=== PATIENT | female | born 1995 | race Caucasian/White ===

== ENCOUNTER 2017-02-15 18:33 | Emergency (ER) | payer SELFPAY ==
[~2017-02-15] VITALS: Ht 152.4 cm; Wt 44.1 kg
[~2017-02-15 18:33] MED LIST: NO HOME MEDICATIONS
[2017-02-15 18:42] VITALS: BP 133/81; TEMP 98.2
[2017-02-15 20:02] VITALS: PULSE 92
== END 2017-02-15 20:02 | disposition home or self-care (01) ==
LOC: COL.ER 18:33
DX: S20.211A Contusion of right front wall of thorax, initial encounter (principal); W22.8XXA Striking against or struck by other objects, initial encounter
CPT/HCPCS: A9284

== ENCOUNTER → 2017-05-14 | Outpatient (CLI) | payer SELFPAY | LOC: COL.RAD 16:33 | DX: M25.562 Pain in left knee (principal) ==

== ENCOUNTER 2018-02-25 18:03 | Emergency (ER) | payer SELFPAY ==
[~2018-02-25] VITALS: Ht 152.4 cm; Wt 44.1 kg
[2018-02-25 18:17] VITALS: TEMP 98.4
[2018-02-25 19:04] LABS: COLLECTION METHOD CLEAN CATCH
[2018-02-25 19:11] LABS: BASO # 0.1 (0.0-0.2); BASO % 0.6 % (0.0-2.0); EOS # 1.2 (0.0-0.7); EOS % 6.4 % (0-4.0); GRAN # 13.3 (1.4-6.5); HEMOGLOBIN 13.1 g/dl (12.5-16.0); LYMPH # 2.7 (1.2-3.4); LYMPH % 13.9 % (20.0-51.0); MEAN CELL VOLUME 88 fl (80.0-100.0); MEAN CORPUSCULAR HEMOGLOBIN 29 pg (27.0-31.0); MEAN CORPUSCULAR HGB CONC 34 g/dl (33.0-37.0); MEAN PLATELET VOLUME 10.5 fl (7.4-10.4); MONO # 1.6 (0.1-0.6); MONO % 8.6 % (1.7-9.3); PLATELET COUNT 272 K/mm3 (130-400); RED BLOOD COUNT 4.45 M/mm3 (4.10-5.30); REDCELL DISTRIBUTION WIDTH-CV 11.2 % (11.5-14.5)
[2018-02-25 19:21] LABS: ALANINE AMINOTRANSFERASE 37 U/L (9-52); ALBUMIN 4.3 gm/dL (3.5-5.0); ALKALINE PHOSPHATASE 39 U/L (50-136); ANION GAP 8 mmol/L (7-16); AST,SGOT 44 U/L (15-37); BILIRUBIN,TOTAL 0.5 mg/dL (0.0-1.0); BLOOD UREA NITROGEN 14 mg/dL (7-17); CALCIUM 9.1 mg/dL (8.4-10.2); CARBON DIOXIDE 27 mmol/L (22-30); CHLORIDE 100 mmol/L (98-107); CREATININE, serum 0.68 mg/dL (0.52-1.25); GLUCOSE 91 mg/dL (74-106); POTASSIUM 3.4 mmol/L (3.4-5.0); SODIUM 135 mmol/L (137-145); TOTAL PROTEIN 7.8 gm/dL (6.4-8.2)
[2018-02-25 19:22] LABS: PH 7 (5-8); SQUAMOUS EPITHELIAL 0-2 /hpf; URINE APPEARANCE Clear; URINE BACTERIA Occasional /hpf; URINE BILIRUBIN Negative (NEGATIVE); URINE BLOOD 2+ (NEGATIVE); URINE COLOR Straw; URINE GLUCOSE Negative (NEGATIVE); URINE KETONE Negative (NEGATIVE); URINE LEUKOCYTE ESTERASE Negative (NEGATIVE); URINE NITRATE Negative (NEGATIVE); URINE PROTEIN(semi-quant) Negative (NEGATIVE); URINE RBC 0-2 /hpf; URINE UROBILINOGEN Negative (NEGATIVE)
[2018-02-25 19:32] LABS: TROPONIN-I < 0.012 ng/mL (0.000-0.034)
[2018-02-25] MEDS ORDERED: ZOFRAN ODT4 MG PO (21:40)
[2018-02-25 21:50] VITALS: BP 130/91; PULSE 96
== END 2018-02-25 21:55 | disposition home or self-care (01) ==
LOC: COL.ER 18:03
PROVIDERS: Physician Assistant
DX: R05 Cough (principal); R11.2 Nausea with vomiting, unspecified; R10.84 Generalized abdominal pain; Z90.49 Acquired absence of other specified parts of digestive tract
CPT/HCPCS: Q9967

== ENCOUNTER → 2018-05-04 | Outpatient (CLI) | payer SELFPAY ==
[~2018-05-04] MED LIST changes: +ZOFRAN ODT4 MG PO
== END ==
LOC: COL.RAD 13:32
DX: N92.6 Irregular menstruation, unspecified (principal); L70.8 Other acne; E34.9 Endocrine disorder, unspecified; Z84.2 Family history of other diseases of the genitourinary system

== ENCOUNTER 2018-09-23 13:28 | Day surgery (SDC) | payer BC ==
[~2018-09-23] VITALS: Ht 152.4 cm; Wt 43.6 kg
[2018-09-23] VITALS (9 sets, daily range): BP systolic 104–118; BP diastolic 54–73; PULSE 16–95; TEMP 97.3–98.8
[~2018-09-23 13:28] MED LIST changes: +DEPO-PROVE150 MG/1 M IM
--- NOTE | 2018-09-23 16:45 | NUR ---
Patient up to room by streacher. Drowsy and oriented x 3. Post OP VSS. Post op fluids infusing via gravity. Denies pain at this time, Denies further needs at this time.
--- NOTE | 2018-09-23 18:03 | NUR ---
Patient in bed resting, grandmother at bedside. Tolerating clear liquids. Denies pain or further needs at this time. Will report off to director instrumentation.
--- NOTE | 2018-09-23 20:14 | NUR ---
Resting in bed. Assessment complete. Lungs clear. Heart sounds normal. Bowels active x4. Pulses strong throughout. Denies pain. No edema noted. Denies needs at this time. Toleration PO well. Planning to discharge after 2029. Will monitor.
--- NOTE | 2018-09-23 20:56 | NUR ---
Patient signed discharge paperwork. All questions answered. Removed INT. Denies other needs at this time.
== END 2018-09-23 21:00 | disposition home or self-care (01) ==
LOC: SDCO 13:28 → SURG 16:46 → SDCO 21:00
DX: K85.90 Acute pancreatitis without necrosis or infection, unspecified (principal); F41.9 Anxiety disorder, unspecified; R53.82 Chronic fatigue, unspecified; F32.9 Major depressive disorder, single episode, unspecified; Z90.49 Acquired absence of other specified parts of digestive tract
CPT/HCPCS: OP; C1769; J2250; J2704; J3010; J7030

== ENCOUNTER → 2019-03-24 | Outpatient (CLI) | payer BC | LOC: COL.RAD 10:34 | DX: M25.512 Pain in left shoulder (principal) ==

== ENCOUNTER → 2019-04-26 | Outpatient (CLI) | payer BC | LOC: COL.RAD 14:57 | DX: K59.00 Constipation, unspecified (principal); R10.9 Unspecified abdominal pain; R11.0 Nausea; Z90.49 Acquired absence of other specified parts of digestive tract ==

== ENCOUNTER 2019-05-12 13:30 | Outpatient (RCR) | payer BC | END 2019-05-31 16:26 | disposition home or self-care (01) | LOC: WSC 13:30 | DX: M25.512 Pain in left shoulder (principal); Z90.49 Acquired absence of other specified parts of digestive tract ==

== ENCOUNTER 2020-09-06 08:45 | Outpatient (RCR) | payer BC | END 2020-09-13 | disposition home or self-care (01) | LOC: WSST | DX: R41.841 Cognitive communication deficit (principal); R41.89 Other symptoms and signs involving cognitive functions and awareness; G47.19 Other hypersomnia; Q85.00 Neurofibromatosis, unspecified ==

== ENCOUNTER → 2020-09-06 | Outpatient (CLI) | payer BC | LOC: COL.RAD 11:47 | DX: Q85.00 Neurofibromatosis, unspecified (principal); F41.1 Generalized anxiety disorder; F32.9 Major depressive disorder, single episode, unspecified; G47.10 Hypersomnia, unspecified | CPT/HCPCS: A9585 ==